=== PATIENT | female | born 1995 | race Caucasian/White ===

== ENCOUNTER 2021-05-28 18:01 | Emergency (ER) | payer SELFPAY ==
[2021-05-28] MEDS: LORazepam 1 MG Tab PO ONE (18:34)
[2021-05-28 18:58] LABS: CHLORIDE,CL 100 mmol/L (98-107); SODIUM,NA 135 mmol/L (136-145)
[2021-05-28 18:59] LABS: ANION GAP 21.1 meq/L (7-15)
[2021-05-28 19:07] LABS: BARBITURATE SCREEN,URINE NEGATIVE (NEGATIVE); BENZODIAZEPINES SCREEN,URINE NEGATIVE (NEGATIVE); EDDP,URINE SCREEN NEGATIVE (NEGATIVE); TCA SCREEN,URINE NEGATIVE (NEGATIVE); THC SCREEN,URINE 50 NG/ML NEGATIVE (NEGATIVE)
[2021-05-28 19:08] LABS: BUPRENORPHINE SCREEN,URINE NEGATIVE (NEGATIVE)
[2021-05-28 19:28] LABS: CORONAVIRUS COVID-19 NAA NEGATIVE (NEGATIVE); RESPIRATORY SYNCYTIAL VIR NAA NEGATIVE (NEGATIVE)
== END 2021-05-28 20:00 | disposition home or self-care (01) ==
LOC: LL.ED 18:01
DX: N39.0 Urinary tract infection, site not specified (principal); F41.9 Anxiety disorder, unspecified; Z20.822 Contact with and (suspected) exposure to COVID-19
CPT/HCPCS: 0241U; 36415; 80053; 80305-QW; 81001; 81025; 83735; 84100; 84443; 84484; 85025; 87086; 93005; 99284; 99284-25; A9270-GY